=== PATIENT | male | born 1970 | race Caucasian/White ===

== ENCOUNTER → 2024-03-30 07:47 | Outpatient (REF) | payer OTHER, SELFPAY | LOC: RAD 07:47 | PROVIDERS: ATTENDING PHYSICIAN Internal Medicine Endocrinology, Diabetes & Metabolism; FAMILY PHYSICIAN Family Medicine | DX: E27.49 Other adrenocortical insufficiency (principal) | CPT/HCPCS: 93975 ==

== ENCOUNTER 2024-03-31 12:09 | Emergency (ER) | payer OTHER, SELFPAY ==
[2024-03-31 12:15] VITALS: BP 149/98
[2024-03-31 12:32] LABS: % Basophils 0.3 % (0-2); % Eosinophils 1.6 % (0-6); % Immature Granulocytes 0.3 % (0-0.5); % Lymphocytes 18.7 % (20.5-51.1); % Monocytes 11.2 % (1.7-9.3); % Neutrophils 67.9 % (42.2-75.2); Absolute Eosinophils 0.1 10^3/uL (0-0.7); Absolute Lymphocytes 1.4 10^3/uL (1.2-3.4); Absolute Monocytes 0.8 10^3/uL (0.1-0.6); Hematocrit 43.4 % (39.0-52.0); Mean Corp Hgb Conc. 34.6 g/dL (33.0-37.0); Mean Corpuscular Hgb 30.7 pg (27.0-31.0); Mean Corpuscular Volume 88.8 fL (80.0-94.0); Mean Platelet Volume 8.8 fL (7.4-10.4); Nucleated Red Blood Cells % 0 % (-); Platelet Count 277 10^3/uL (130-400); Red Blood Cell Count 4.89 10^6/uL (4.70-6.10); Red Cell Dist. Width 12.7 % (11.5-14.5); White Blood Cell Count 7.3 10^3/uL (4.8-10.8)
[2024-03-31 12:50] LABS: ALT (SGPT) 38 U/L (0-50); AST (SGOT) 32 U/L (17-59); Albumin 4.5 g/dl (3.5-5.0); Alkaline Phosphatase 60 U/L (38-126); Blood Urea Nitrogen 17 mg/dl (9-20); Calcium 9.1 mg/dl (8.4-10.2); Carbon Dioxide 27 mmol/L (22-30); Chloride 104 mmol/L (98-107); Glucose 110 mg/dl (70-99); Potassium 4.3 mmol/L (3.5-5.1); Sodium 138 mmol/L (135-145); Total Bilirubin 0.7 mg/dl (0.2-1.3); Total Protein 7.1 g/dl (6.3-8.2); eGFR > 60.00
[2024-03-31 13:02] LABS: Troponin I < 0.012 ng/ml
[2024-03-31 14:27] VITALS: BP 138/91
[2024-03-31 14:28] VITALS: BMI 28.4
[2024-03-31 15:00] VITALS: BP 152/96
[2024-03-31 15:58] LABS: Troponin I < 0.012 ng/ml
[2024-03-31 16:00] VITALS: BP 126/81
--- NOTE | 2024-03-31 16:48 | ED.GENMED ---
History of Present Illness
General
Chief Complaint: Chest Problem
Source: patient
Exam Limitations: none
Time Seen by Provider: 03/31/24 14:00
Nursing documentation reviewed up to this point in time: agreed with
History of Present Illness
History of Present Illness:
54-year-old male with past medical history of hypertension of lipidemia presenting to the emergency department today with concerns of chest tightness shortness of breath started yesterday with exertion improving today. Patient denies any
diaphoresis vomiting. No recent illness.
Past History
Past History
ED Past Medical History: GERD, HTN and Hypercholesterolemia
ED Past Surgical History: None
Social History
Tobacco: Non-smoker
Alcohol: Occasional
Drug: None
Personal:
Living: with family
Employment: Employed
Review of Systems
Review of Systems
Allergies reviewed?: Yes
All Other Systems: ROS reviewed and negative except as documented in HPI and ROS
Phy Exam
Physical Exam
Physical Exam:
GENERAL: Alert , in no apparent distress
EYE: pupils equal and reactive
NECK: Supple, no significant adenopathy.
ENT: o/p clr, mmm.
CARDIAC: Regular rate and rhythm .
LUNGS: Clear breath sounds bilaterally, no acute respiratory distress, no wheezes/rales/rhonchi
ABDOMEN: Soft, without focal tenderness, no r/g, no cvat
NEUROLOGICAL: Alert and oriented, no focal neuro deficits
SKIN: Warm and dry, skin intact.
MUSCULOSKELETAL: No edema, well perfused.
PSYCH: Normal and appropriate interaction.
Course
Orders/Labs/Results
Orders:
Orders
03/31/24 12:10
Electrocardiogram (*1) Urgent
Reason for Study: Chest Pain
EKG- Treatment ONCE
03/31/24 12:22
Complete Blood Count/With Diff Urgent
Comprehensive Metabolic Panel Urgent
Troponin I Urgent
03/31/24 14:00
Chest [CR Chest - 2 Views ] Urgent
Comment:
Reason For Exam: cp
03/31/24 15:05
EKG [Electrocardiogram (*1)] Urgent
Reason for Study: Chest Pain
EKG- Treatment ONCE
03/31/24 15:28
Troponin I Urgent
Abnormal Lab Results
03/31/24
12:22
Absolute Monos (auto) 0.8 H 10^3/uL
(0.1-0.6)
Lymphocytes % 18.7 L %
(20.5-51.1)
Monocytes % 11.2 H %
(1.7-9.3)
Glucose 110 H mg/dl
(70-99)
03/31/24 12:22
03/31/24 12:22
Vital Signs
Initial and Last Documented VS:
Initial Vital Signs
Temp Pulse Resp BP Pulse Ox
98 F 77 18 149/98 98
03/31/24 12:15 03/31/24 12:15 03/31/24 12:15 03/31/24 12:15 03/31/24 12:15
Last Documented Vital Signs
Temp Pulse Resp BP Pulse Ox
98 F 70 14 152/96 97
03/31/24 12:15 03/31/24 15:45 03/31/24 15:45 03/31/24 15:00 03/31/24 15:45
MDM/Problems Addressed
MDM/Problems Addressed:
54-year-old male presenting to the emergency department today with concerns of chest tightness with associated shortness of breath that seem to occur when exercising yesterday had some mild symptoms this morning but improving throughout the day
today. Here very minimal symptoms. Initial vital signs showing slightly elevated blood pressure otherwise vital signs are normal. Labs were obtained unremarkable troponin negative EKG without signs of ischemia. Chest x-ray without emergent
abnormalities. Patient asymptomatic throughout ER stay. No evidence of emergent ACS at this time. He was advised very close cardiology follow-up and strict return precautions were discussed.
*Critical Care Note
Total Time (30-74mins, 75-104mins- exclusive of procedures): Not Applicable
ED Attending Note
-
Portions of this chart may have been created with voice recognition software.� Occasional wrong word or��sound alike� substitutions may have occurred due to the inherent limitations of voice recognition software.
Discharge Plan
Departure
Patient Disposition: Home (Routine Discharge)
Date of Disposition: 03/31/24
Time of Disposition: 17:06
Patient with high blood pressure during this ER visit?: No
Condition: Good
Covid-19: Not Applicable
Discharge Problem:
Chest pain
Instructions: Chest Pain CBC Follow Up
Prescriptions:
No Action
omeprazole 20 MG tablet,delayed release (DR/EC)
20 mg PO ONCE Qty: 40 0RF
Rx Instructions:
Take 20mg once daily
Referrals:
Ti Messina, DO [Family Provider] -
Activity Restrictions/Additional Instructions:
You came to the emergency department today with concerns of chest discomfort. Here had a reassuring assessment. Please follow-up closely with cardiology and immediately return for any progression or worsening of symptoms.
Interventions
Interventions:
*Risk Screen - Suicide Last Done: 03/31/24 14:29
*General Assessment Last Done: 03/31/24 14:28
*Neglect/Abuse Screening Last Done: 03/31/24 14:29
*ED COVID-19 Vaccine History Last Done: 03/31/24 14:28
ED- Cardiac Assessment Last Done: 03/31/24 14:29
ED- Pulmonary Assessment Last Done: 03/31/24 14:29
Discharge Date and Time
Print Language: UGANDAN
== END 2024-03-31 17:23 | disposition home or self-care (01) ==
LOC: EMR 12:09
PROVIDERS: Emergency Medicine; Physician Assistant; EMERGENCY PHYSICIAN Emergency Medicine; FAMILY PHYSICIAN Family Medicine
DX: R07.89 Other chest pain (principal); R06.02 Shortness of breath; I10 Essential (primary) hypertension; E78.00 Pure hypercholesterolemia, unspecified; K21.9 Gastro-esophageal reflux disease without esophagitis
CPT/HCPCS: 99284; 71046; 80053; 84484; 85025; 93005

== ENCOUNTER → 2024-05-04 07:25 | Outpatient (REF) | payer OTHER, SELFPAY | LOC: HWRCS 07:25 | PROVIDERS: ATTENDING PHYSICIAN Internal Medicine; FAMILY PHYSICIAN Family Medicine | DX: R07.9 Chest pain, unspecified (principal); R93.1 Abnormal findings on diagnostic imaging of heart and coronary circulation; I10 Essential (primary) hypertension; E78.00 Pure hypercholesterolemia, unspecified; Z82.49 Family history of ischemic heart disease and other diseases of the circulatory system; E66.3 Overweight | CPT/HCPCS: 78452; 93017; A9500 ==

== ENCOUNTER → 2024-05-12 13:53 | Outpatient (REF) | payer OTHER, SELFPAY | LOC: HWRCS 13:53 | PROVIDERS: ATTENDING PHYSICIAN Internal Medicine; FAMILY PHYSICIAN Family Medicine | DX: R07.9 Chest pain, unspecified (principal); R93.1 Abnormal findings on diagnostic imaging of heart and coronary circulation; I10 Essential (primary) hypertension; E78.00 Pure hypercholesterolemia, unspecified; Z82.49 Family history of ischemic heart disease and other diseases of the circulatory system; E66.3 Overweight | CPT/HCPCS: 93306 ==

== ENCOUNTER → 2024-12-16 08:53 | Outpatient (REF) | payer OTHER, SELFPAY | LOC: MRI 3T 08:53 | PROVIDERS: ATTENDING PHYSICIAN Urology | DX: E27.8 Other specified disorders of adrenal gland (principal) | CPT/HCPCS: 74183; A9575 ==